=== PATIENT | male | born 1960 | race Caucasian/White ===

== ENCOUNTER 2017-02-05 06:23 | Emergency (ER) | payer BC ==
[2017-02-05] MEDS ORDERED: RX INFO: IV CONTRAST WAS GIVEN 1 EACH MISC MISCELLANE PRN (06:24)
--- NOTE | 2017-02-05 06:39 | ED ---
General Adult HPI - General Source: RN notes reviewed <Bebeto De La Vega - Last Filed: 02/05/17 06:28> <Sanjeev Jackson - Last Filed: 02/05/17 09:28> - General Stated complaint: Head Injury Time Seen by Provider: 02/05/17 06:25 - History of Present Illness Initial comments: This is a 56-year-old male who presents to the emergency department complaining of having fallen today. Patient states he fell yesterday when he was getting out of some pieces of equipment he slipped on it fell and hit his head. Patient states he went to [facility] had a CAT scan and they did not find anything wrong with him. Patient states today he got up to go to the bathroom became lightheaded believes he passed out fell his head on the floor or toilet. Patient states she's not sure because he was unconscious. Patient states the new pain that he has today is in the neck right cheek and right flank pain. Patient denies any chest pain or difficulty breathing. Patient denies any headache. Patient denies any back pain. Patient denies any upper or lower extremity pain. Patient had ecchymosis of his eye on the right from yesterday's fall and he had a laceration above the right eye which was sutured up yesterday. He states he had a tetanus in the last few years. (Bebeto De La Vega) Review of Systems ROS Other: All systems not noted in ROS Statement are negative. <Bbeeto De La Vega - Last Filed: 02/05/17 06:28> ROS Other: All systems not noted in ROS Statement are negative. <Sanjeev Jackson - Last Filed: 02/05/17 09:28> ROS Statement: Those systems with pertinent positive or pertinent negative responses have been documented in the HPI. General Exam <Bebeto De La Vega - Last Filed: 02/05/17 06:28> <Sanjeev Jackson - Last Filed: 02/05/17 09:28> - General Exam Comments Initial Comments: GENERAL: Patient is well-developed and well-nourished. Patient is nontoxic and well- hydrated and is in mild distress. ENT: Neck is soft and supple. No significant lymphadenopathy is noted. Oropharynx is clear. Moist mucous membranes. Patient has some mid cervical neck pain. Patient's right cheek is tender to palpation. Patient has swelling and ecchymosis of his right eye to the point where the eyelid is completely closed. EYES: The sclera were anicteric and conjunctiva were pink and moist. Extraocular movements were intact and pupils were equal round and reactive to light. Eyelids were unremarkable. PULMONARY: Unlabored respirations. Good breath sounds bilaterally. No audible rales rhonchi or wheezing was noted. CARDIOVASCULAR: There is a regular rate and rhythm without any murmurs gallops or rubs. Patient has an abrasion on his right flank and it is very tender to palpation. ABDOMEN: Soft and nontender with normal bowel sounds. No palpable organomegaly was noted. There is no palpable pulsatile mass. SKIN: Skin is clear with no lesions or rashes and otherwise unremarkable. NEUROLOGIC: Patient is alert and oriented x3. Cranial nerves II through XII are grossly intact. Motor and sensory are also intact. Normal speech, volume and content. Symmetrical smile. MUSCULOSKELETAL: Normal extremities with adequate strength and full range of motion. LYMPHATICS: No significant lymphadenopathy is noted PSYCHIATRIC: Normal psychiatric evaluation. (Bebeto De La Vega) Course <Bebeto De La Vega - Last Filed: 02/05/17 06:28> <Sanjeev Jackson - Last Filed: 02/05/17 09:28> Vital Signs 02/05/17 02/05/17 06:29 08:06 Temperature 97.6 F Pulse Rate 72 90 Respiratory 16 18 Rate Blood Pressure 146/86 125/77 O2 Sat by Pulse 99 95 Oximetry - Reevaluation(s) Reevaluation #1: 02/05/17 09:26 I did reevaluate the patient had a long discussion with him and his regarding the findings the patient did have right orbital trauma yesterday evening and then apparent syncopal episode where he struck his face against a toilet and was unconscious for about 10 minutes per his . It is unclear whether this fully represents head trauma his etiology or not. The patient does require admission for evaluation he did demonstrate evidence of concussion he [facility] be [facility] to [facility] I did discuss the case with Dr. Powers who did consult the trauma surgeon and did agree to accept the patient transfer. (Sanjeev Jackson) Reevaluation #2: 02/05/17 09:27 The patient did not trigger trauma activation. He is currently [place] Coma Scale of 15. (Sanjeev Jackson) Medical Decision Making <Bebeto De La Vega - Last Filed: 02/05/17 06:28> - Lab Data Result diagrams: 02/05/17 06:40 02/05/17 06:40 - Radiology Data Radiology results: report reviewed (I did review the imaging and reports no evidence of acute fractures or bleeds.), image reviewed <Sanjeev Jackson - Last Filed: 02/05/17 09:28> - Medical Decision Making EKG shows a normal sinus rhythm at 75 bpm OK interval is 178 QRSs 100 QT interval 390 QTC is 435. Patient's EKG shows no ST segment elevation or depression or T wave abnormalities are noted. Dr. Jackson will be taking over the care of this patient at 7 AM (Bebeto De La Vega) - Lab Data Lab Results 02/05/17 02/05/17 02/05/17 Range/Units 06:40 06:40 06:40 WBC 11.9 H (3.8-10.6) k/uL RBC 4.89 (4.30-5.90) m/uL Hgb 14.7 (13.0-17.5) gm/dL Hct 44.1 (39.0-53.0) % MCV 90.2 (80.0-100.0) fL MCH 30.0 (25.0-35.0) pg MCHC 33.2 (31.0-37.0) g/dL RDW 12.9 (11.5-15.5) % Plt Count 244 (150-450) k/uL Neutrophils % 80 % Lymphocytes % 11 % Monocytes % 4 % Eosinophils % 3 % Basophils % 1 % Neutrophils # 9.5 H (1.3-7.7) k/uL Lymphocytes # 1.3 (1.0-4.8) k/uL Monocytes # 0.5 (0-1.0) k/uL Eosinophils # 0.3 (0-0.7) k/uL Basophils # 0.1 (0-0.2) k/uL PT (9.0-12.0) sec INR (<1.1) APTT (22.0-30.0) sec Sodium 143 (137-145) mmol/L Potassium 4.3 (3.5-5.1) mmol/L Chloride 108 H (98-107) mmol/L Carbon Dioxide 25 (22-30) mmol/L Anion Gap 10 mmol/L BUN 11 (9-20) mg/dL Creatinine 0.94 (0.66-1.25) mg/dL Est GFR (MDRD) Af Amer >60 (>60 ml/min/1.73 sqM) Est GFR (MDRD) Non-Af >60 (>60 ml/min/1.73 sqM) Glucose 99 (74-99) mg/dL Calcium 9.0 (8.4-10.2) mg/dL Magnesium 1.9 (1.6-2.3) mg/dL Total Bilirubin 0.6 (0.2-1.3) mg/dL AST 32 (17-59) U/L ALT 32 (21-72) U/L Alkaline Phosphatase 66 (38-126) U/L Total Creatine Kinase 417 H (55-170) U/L CK-MB (CK-2) 1.3 (0.0-2.4) ng/mL CK-MB (CK-2) Rel Index 0.3 Troponin I <0.012 (0.000-0.034) ng/mL Total Protein 7.1 (6.3-8.2) g/dL Albumin 4.3 (3.5-5.0) g/dL Serum Alcohol 109 mg/dL 02/05/17 Range/Units 06:40 WBC (3.8-10.6) k/uL RBC (4.30-5.90) m/uL Hgb (13.0-17.5) gm/dL Hct (39.0-53.0) % MCV (80.0-100.0) fL MCH (25.0-35.0) pg MCHC (31.0-37.0) g/dL RDW (11.5-15.5) % Plt Count (150-450) k/uL Neutrophils % % Lymphocytes % % Monocytes % % Eosinophils % % Basophils % % Neutrophils # (1.3-7.7) k/uL Lymphocytes # (1.0-4.8) k/uL Monocytes # (0-1.0) k/uL Eosinophils # (0-0.7) k/uL Basophils # (0-0.2) k/uL PT 11.3 (9.0-12.0) sec INR 1.1 (<1.1) APTT 21.1 L (22.0-30.0) sec Sodium (137-145) mmol/L Potassium (3.5-5.1) mmol/L Chloride (98-107) mmol/L Carbon Dioxide (22-30) mmol/L Anion Gap mmol/L BUN (9-20) mg/dL Creatinine (0.66-1.25) mg/dL Est GFR (MDRD) Af Amer (>60 ml/min/1.73 sqM) Est GFR (MDRD) Non-Af (>60 ml/min/1.73 sqM) Glucose (74-99) mg/dL Calcium (8.4-10.2) mg/dL Magnesium (1.6-2.3) mg/dL Total Bilirubin (0.2-1.3) mg/dL AST (17-59) U/L ALT (21-72) U/L Alkaline Phosphatase (38-126) U/L Total Creatine Kinase (55-170) U/L CK-MB (CK-2) (0.0-2.4) ng/mL CK-MB (CK-2) Rel Index Troponin I (0.000-0.034) ng/mL Total Protein (6.3-8.2) g/dL Albumin (3.5-5.0) g/dL Serum Alcohol mg/dL Disposition <Bebeto De La Vega - Last Filed: 02/05/17 06:28> - Out of Hospital Transfer - Req. Specs Out of Hospital Transfer - Requested Specifics: Other Emergency Center <Sanjeev Jackson - Last Filed: 02/05/17 09:28> Clinical Impression: Syncope, Fall, Concussion, Facial contusion Disposition: OTHER INSTITUTION NOT DEFINED Referrals: Edson Corona DO [Primary Care Provider] - 1-2 days
[2017-02-05 06:52] LABS: Basophils # (A) 0.1 k/uL (0-0.2); Basophils % (A) 1 %; CH 29.8; CHCM 33.2; Eosinophils # (A) 0.3 k/uL (0-0.7); Eosinophils % (A) 3 %; HCT 44.1 % (39.0-53.0); HGB 14.7 gm/dL (13.0-17.5); Luc # (Auto) 0.16; Luc % (Auto) 1; Lymphocytes # (A) 1.3 k/uL (1.0-4.8); Lymphocytes % (A) 11 %; MCHC 33.2 g/dL (31.0-37.0); MCV 90.2 fL (80.0-100.0); Mean Platelet Volume 7.4; Monocytes # (A) 0.5 k/uL (0-1.0); Monocytes % (A) 4 %; Neutrophils # (A) 9.5 k/uL (1.3-7.7); Neutrophils % (A) 80 %; RBC 4.89 m/uL (4.30-5.90); RDW 12.9 % (11.5-15.5); WBC 11.9 k/uL (3.8-10.6); WBC (Perox) 12.26
[2017-02-05 07:06] LABS: ALT 32 U/L (21-72); AST 32 U/L (17-59); Alkaline Phosphatase 66 U/L (38-126); Anion Gap 10 mmol/L; Blood Urea Nitrogen 11 mg/dL (9-20); Carbon Dioxide 25 mmol/L (22-30); Chloride 108 mmol/L (98-107); Glucose 99 mg/dL (74-99); Magnesium 1.9 mg/dL (1.6-2.3); Non-African American GFR(MDRD) >60 (>60 ml/min/1.73 sqM); Potassium 4.3 mmol/L (3.5-5.1); Sodium 143 mmol/L (137-145); Total Bilirubin 0.6 mg/dL (0.2-1.3); Total Protein 7.1 g/dL (6.3-8.2)
[2017-02-05 07:10] LABS: INR 1.1 (<1.1); Prothrombin Time 11.3 sec (9.0-12.0)
[2017-02-05 07:14] LABS: Partial Thromboplastin Time 21.1 sec (22.0-30.0)
[2017-02-05 07:17] LABS: Alcohol 109 mg/dL
[2017-02-05 07:21] LABS: Creatine Kinase 417 U/L (55-170)
[2017-02-05 07:34] LABS: Creatine Kinase MB 1.3 ng/mL (0.0-2.4); Troponin I <0.012 ng/mL (0.000-0.034)
--- NOTE | 2017-02-05 07:39 | CT ---
EXAMINATION TYPE: CT brain cspine wo con DATE OF EXAM: 02/05/2017 7:22 AM COMPARISON: NONE HISTORY: Fall, bruising and swelling to Rt orbit CT DLP: 2297.5 (brain, cervical, facial) mGycm, Automated exposure control for dose reduction was use d. CONTRAST: Patient injected with 0 mL of Omnipaque 300. CT of the brain is performed utilizing 3 mm thick sections through the posterior fossa and 3 mm thick sections through the remaining calvarium. Study is performed within 24 hours of arrival to the hospital. No abnormal hyperdensity is present to suggest an acute intracranial hemorrhage. No mass lesion is evident. No acute infarcts are evident. Ventricles and sulci are appropriate for the patient age. There is mucosal thickening within ethmoid air cells and the sphenoid sinus. Remaining paranasal sinu ses and mastoid air cells are clear. No acute fractures are identified. IMPRESSIONS: 1. No acute intracranial process. CT cervical spine. COMPARISON: None CT of the cervical spine is performed in the axial plane at 2 mm thick sections. Reconstructed image s in the coronal, and sagittal plane are reviewed on the computer. No acute fractures are evident. Vertebral body alignment is normal. Disc space narrowing is present C6-C7. Posterior endplate spurring is present. Anterior vertebral bod y spurring is present at C6 and C7. Vertebral body heights are preserved. No spinal canal stenosis is evident. Moderate bilateral foraminal narrowing at C3-4 is present. Moderate to severe right and moderate left foraminal narrowing from uncovertebral joint hypertrophy is present C6-7. Some endplate spurring in the right paracentral canal is present at C6-7 IMPRESSIONS: 1. Degenerative changes within the cervical spine contributing to foraminal narrowing at C3-4, C6-7. 2. Degenerative disc changes C6-7. 3. No acute posttraumatic changes.
--- NOTE | 2017-02-05 07:43 | CT ---
EXAMINATION TYPE: CT facial bones wo con DATE OF EXAM: 02/05/2017 7:22 AM COMPARISON: NONE HISTORY: Fall, bruising and swelling to Rt orbit CT DLP: 2297.5 (brain, cervical, facial) mGycm Automated exposure control for dose reduction was used. TECHNIQUE: CT scan of the sinuses is performed without contrast, axial images are obtained, coronal r eformatted images are also reviewed. FINDINGS: There is mucosal thickening through the bilateral maxillary sinuses. Left septal deviation is present. No nasal bone fractures evident. The maxillary spine is intact. Zygomatic arches are inta ct. Greater wings of sphenoid are normal. Mucosal thickening is within ethmoid air cells. Frontal sin uses are clear. Sphenoid sinuses and mucosal thickening. Mastoid air cells within the [id number] a re clear. Soft tissue swelling is over the right cheek. Orbital floors are intact. IMPRESSION: 1. Normal osseous structures. No acute fracture evident. 2. Mucosal thickening through paranasal sinuses. 3. Soft tissue swelling right cheek
[2017-02-05 08:07] VITALS: RESP 18
--- NOTE | 2017-02-05 08:15 | CT ---
EXAMINATION TYPE: CT ChestAbdPelvis w con DATE OF EXAM: 02/05/2017 7:21 AM INDICATION: Fall, pain to Rt side COMPARISON: NONE CT DLP: 1255.9 mGycm CONTRAST: Performed without Oral Contrast and with IV Contrast, patient injected with 100 mL of Omnipaque 300. TECHNIQUE: Axial images at 5 mm thick sections. Reconstructed images in the coronal plane. Delayed images through the kidneys. FINDINGS: CT CHEST: Portion of the thyroid visualized is normal. No suspicious lung nodules or focal infiltrates are present. No enlarged mediastinal or hilar adenopathy is evident. The ascending aorta diameter at the level of the main pulmonary artery is 3.8 cm. The main pulmonary artery diameter at the bifurcation is 2.[address] ABDOMEN: Some subtle soft tissue swelling may be along the right flank laterally. No hematoma is i dentified. Liver: Normal Spleen: Normal Pancreas: Normal Adrenal glands: The adrenal glands are normal. Gallbladder: Gallstones are present. Kidneys: No masses are evident. No hydronephrosis is present. No cysts are present. Delayed images were obtained through the kidneys, which remain unremarkable. Aorta: Vascular calcification is within the aorta. Inferior vena cava: Normal. CT PELVIS: Loops of bowel within the abdomen and pelvis are normal. Multiple diverticuli within the sigmoid colon. No acute sigmoid diverticulitis is evident. Appendix: Normal as visualized. Urinary bladder: Normal. Genitourinary structures: Prostate is slightly prominent Osseous structures: No suspicious lytic or sclerotic lesions. Bone island is likely within the grant administrator ior head of the left femur. Vertebral body heights are preserved. Some degenerative disc changes may be present within the lower lumbar spine. IMPRESSIONS: 1. No acute posttraumatic changes. 2. Cholelithiasis 3. Diverticulosis sigmoid colon
[2017-02-05] MEDS ORDERED: ACETAMINOPHEN IV (For NPO) 1,000 MG in SALINE 1 100ML.BAG IVPB STA (08:31)
[2017-02-05 09:27] VITALS: BP 138/83; PULSE 81; TEMP 98.1
== END 2017-02-05 10:09 | disposition short-term general hospital (02) ==
LOC: EC 06:23
DX: S06.0X1A Concussion with loss of consciousness of 30 minutes or less, initial encounter (principal); S30.811A Abrasion of abdominal wall, initial encounter; S00.11XD Contusion of right eyelid and periocular area, subsequent encounter; M54.2 Cervicalgia; W01.198A Fall on same level from slipping, tripping and stumbling with subsequent striking against other object, initial encounter; Y92.002 Bathroom of unspecified non-institutional (private) residence as the place of occurrence of the external cause
CPT/HCPCS: 36415; 93005; 80053; 82550; 82553; 83735; 84484; 85025; 85610; 85730; 80320; 72125; 70486; 70450; 71260; 74177; 99285; 96365; Q9967; J0131